=== PATIENT | female | born 1980 | race Caucasian/White ===

== ENCOUNTER 2016-11-12 11:54 | Day surgery (SDC) | payer OTHER ==
[~2016-11-12] VITALS: Ht 172.7 cm; Wt 73.9 kg
[~2016-11-12 11:54] MED LIST: Dexamethasone 4 mg/mL Inj IVPUSH PRN; EPHEDrine Sulfate 50 mg/mL Inj IVPUSH PRN; HYDROmorphone 1 mg/mL Inj IVPUSH PRN; Labetalol 5 mg/mL 4 mL Inj IV PRN; Lactated Ringer's 1,000 ML IV SCH; Lactated Ringer's 500 ML IV PRN; MEDR150D9 IM; MetoCLOpramide 5 mg/mL 2 mL Inj IVPUSH PRN; Ondansetron 2 mg/mL 2 mL Inj IVPUSH PRN; Phenylephrine 10,000 mCg/mL Inj IVPUSH PRN; fentaNYL-PF 50 mCg/mL 2 mL Inj IVPUSH PRN; hydrALAZINE 20 mg/mL Inj IVPUSH PRN
[2016-11-12] MEDS ORDERED: Propofol 10 mg/mL 20 mL Inj ONE (11:55)
[2016-11-12] MEDS ORDERED: Ketamine 10 mg/mL 20 mL Inj ONE (11:55)
[2016-11-12] MEDS ORDERED: fentaNYL-PF 50 mCg/mL 2 mL Inj ONE (11:55)
[2016-11-12 12:39] VITALS: BP 140/80; PULSE 68; RESP 14; O2SAT 100
[2016-11-12] MEDS ORDERED: Lactated Ringer's 1,000 ML IV ONE (12:42)
[2016-11-12] MEDS ORDERED: Bupivacaine-MPF 0.25%/EPI 30 mL Inj INFILTRATE ONE (13:15)
[2016-11-12] MEDS ORDERED: Bacitracin Ointment Packet TOPICAL ONE (13:34)
[2016-11-12] MEDS ORDERED: oxyCODONE-Acetamin 5-325 mg Tablet PO PRN (13:55)
[2016-11-12 13:57] VITALS: BP 118/88; PULSE 94; RESP 16; O2SAT 99
--- NOTE | 2016-11-12 14:15 | PCM.HPANE ---
Patient Data Date of Service: Nov 12, 2016 Surgeon Admitting Provider: Attending Provider:Scar Dickey MD Primary Care Physician:Reji Plaza MD Other Provider:Cely Reynolds Anesthesia Reason for Visit Anal Skin Tag Ht/WT & BMI Height (Feet): 5 Height (Inches): 8 Weight (Kilograms): 73.94 Body Mass Index 24.00 Allergies Coded Allergies: No Known Allergies (Unverified Allergy, 06/11/11) Past Anesthesia History Anesthesia History: Denies:: Abnormal Airway, Anesthesia Reactions, Difficult Intubation Diabetes History Hx Diabetes?: No MRSA MRSA: No Medications Hypertension Medication: No Home Meds Incl Beta Ester: No Reported Medications Medroxyprogesterone Acetate (Depo-Provera)150 Mg/1 Ml [id number] Mg IM [id number] 11/10/16 History History of ENT Problems?: No HEENT History: Denies:: Abnormal Airway Cataracts Difficult Intubation Dysphagia Glaucoma Hearing Problem Sinus Problem TMJ Denture Type: None Teeth Condition: Within Normal Limits Hx of Heart Problems?: No Cardiovascular History: Denies:: AICD Abdominal Aortic Aneurism Chest Pain Congestive Heart Failure Coronary Artery Disease Edema Heart Murmur Hypertension Irregular Heartbeat Pacemaker Peripheral Vascular Rheumatic Fever Thrombophlebitis Valvular Heart Disease Hx of Respiratory Problem?: No Respiratory History: Denies:: Asthma COPD Emphysema Oxygen Administration Pneumonia Tuberculosis Use of C-PAP Machine Hx Neurologic Problems?: No Neurological History: Denies:: Alzheimer's Disease CVA Headaches Multiple Sclerosis Parkinson's Disease Seizures Hx of GI Problems?: Yes Hx of Problems?: No Genitourinary History: Denies:: Kidney Stones Urinary Tract Infection Female Hx: Denies:: Currently Problems with Breasts? Skin History: Denies:: History Skin Disorders? Pressure Ulcers Hx Musculoskeletal Problems?: No Hx of Psycho/Social Problems?: No Psycho Social History: Denies:: Anxiety Hx Depression Hx Surgeries?: Yes (appe) Hx Any Other Health Problems?: Yes Other History: Denies:: Cancer Thyroid Disease History Blood Transfusions: Positive for:: Accept Blood Products? Denies:: Blood Transfusions Hx Diabetes: No Hx Alcohol Use: YesAlcoholic Drinks Per Day: 2-3 glasses weekendsHx Substance Use: NoHave You Smoked inLast 12 mo: No Stop/Bang P-Blood Pressure: treated: No B- Body Mass Index > 35 kg/m2: No A- Age over 50: No N- Neck Large Circumference: No G- Gender Male: No DENIS Risk Assessment: Low Risk, <3 Yes Risk Assessment Category Category 1A: Patient has history of documented sleep apnea, and HAS NOT received any narcotic, sedative or anesthesia administration during this stay. Category 1B: Patient has history of documented sleep apnea, and HAS received any narcotic , sedative or anesthesia administration during this stay Category 2: Patient has SUSPECTED Obstructive Sleep Apnea, and HAS received any narcotic , sedative or anesthesia administration during this stay. Category 3: Patient has SUSPECTED Obstructive Sleep Apnea and HAS NOT received narcotic, sedative or anesthesia administration during this stay. Category 4: Outpatient in Procedural Areas with known sleep apnea or who screen positive for High Risk via the STOP/BANG questionnaire. Exam Exam Vital Signs Vital Signs Date Time Temp Pulse Resp B/P Pulse Ox O2 Delivery O2 Flow Rate FiO2 11/12/16 13:57 36.3 94 16 118/88 99 Room Air 11/12/16 12:39 36.6 68 14 140/80 100 Room Air General Appearance: Alert, Oriented X3, Cooperative, No Acute Distress HEENT/AIRWAY: MP 2 Lungs: Clear to Auscultation, Normal Air Movement Heart: Exam Unremarkable, Regular Rate/Rhythm, No Murmurs/Rubs/Gallops Meds/Labs/Diagnostics Admission Meds Current Medications Lactated Ringer's (Lr) 1,000 ml @ ud STK-MED ONCE IV Last administered on 11/12 12:42; Start 11/12/16 at 12:42; Stop 11/12/16 at 12:43; Status DC Bupivacaine HCl/ Epinephrine Bitart (Sensorcaine-MPF 0.25%/EPI Inj) 30 ml STK- MED ONCE INFILTRATE Last administered on 11/12/16 13:15; Start 11/12/16 at 13: 15; Stop 11/12/16 at 13:16; Status DC Lidocaine HCl (Xylocaine 1% Inj) 20 ml STK-MED ONCE INJ Last administered on 13:15; Start 11/12/16 at 13:15; Stop 11/12/16 at 13:36; Status DC Bacitracin (Bacitracin Ointment) 1 applic STK-MED ONCE TOPICAL Last administered on 11/12/16 13:34; Start 11/12/16 at 13:34; Stop 11/12/16 at 13:36 ; Status DC Plan Impression Patient chart reviewed, patient interviewed and anesthestic plan with risks, benefits, and alternatives discussed, and informed consent obtained. NPO per Anesth. Guidelines: Yes ASA Physical Status: ASA1 Normal Healthy Anesthetic Plan: MAC Bene/Risks/Altern/Consents: Yes HP Complete Prior to Induction: Yes Fitz Guzman MD Nov 12, 2016 14:15
--- NOTE | 2016-11-12 14:21 | PCM.ANEP1 ---
Post Anesthesia PACU Phase 1 Assessment Date of Service: Nov 12, 2016 Vital Signs Vital Signs Date Time Temp Pulse Resp B/P Pulse Ox O2 Delivery O2 Flow Rate FiO2 11/12/16 13:57 36.3 94 16 118/88 99 Room Air 11/12/16 12:39 36.6 68 14 140/80 100 Room Air Anesthetic Administered: MAC Level of Alertness: Awake, talking Pain: No Nausea or Vomiting: No CV Function & Hydration Stable: Yes Airway Device: Oxygen Delivery: Room Air Lungs: Clear to Auscultation, Normal Air Movement PACU Phase 2 Assessment Complications: No Follow up Care: N/A Patient Instructions Provided: N/A Fitz Guzman MD Nov 12, 2016 14:21
--- NOTE | 2016-11-12 14:30 | OP ---
[address] [address] OPERATIVE REPORT PATIENT: SAAD SOTO : 1980 MR#: [id number] ADMIT: 11/12/2016 JOB ID: [id number] DATE OF SURGERY: 11/12/2016 ANESTHESIA: MAC with local. PREOPERATIVE DIAGNOSIS(ES): Anal skin tag. POSTOPERATIVE DIAGNOSIS(ES): Anal skin tag. OPERATIVE PROCEDURE: Excision of anal skin tag. SURGEON: Dr. Scar Dickey. GARDEN WORKER: None. COMPLICATIONS: None. ESTIMATED BLOOD LOSS: Less than 10 mL. CONDITION: Satisfactory. SPECIMEN: Anal pack. FINDINGS: An anterior anal tag which was excised. The wound was closed. INDICATION/SIGNIFICANT HISTORY: The patient is a 35-year-old female who developed an anal tag and 2-1/2 years ago. She was very self-conscious about this and was referred to me. Other than being self-conscious, she was relatively asymptomatic. I advised to leave it alone but she was determined to have it removed. OPERATIVE TECHNIQUE: The patient was taken to the operating room and placed in supine position. Light sedation was administered and she was placed in lithotomy. The perineum was prepped and draped in standard surgical fashion. A procedure pause performed. She had a anal tag seen in clinic in the anterior location. I completely excised this using a combination of dissection and electrocautery. Hemostasis was maintained. I then closed the wound with a running 4-0 Monocryl and reinforced it with an additional simple Monocryl. Local anesthetic had been injected at the beginning of the case.
[2016-11-12 15:07] VITALS: BP 148/91; PULSE 82; RESP 16; O2SAT 100
--- NOTE | 2016-11-16 11:42 | PATH ---
SURGICAL PATHOLOGY Attending Physician:Scar Dickey MD CASE STATUS: Signed Out PATIENT NAME: SAAD SOTO PID: [id number] : 1980 DATE COLLECTED:11/12/2016 00:00 SPECIMEN: Anus, Biopsy CLINICAL HISTORY: ANAL SKIN TAG 1). ANAL SKIN TAG FINAL DIAGNOSIS: 1.ANAL SKIN TAG: ANAL TAG. Negative for dysplasia and neoplasia. ICD10 K64.4 GROSS DESCRIPTION: Received in formalin, labeled with the patient's name and "anal skin tag" is one fragment of wrinkly woodson tissue measuring 1.5 x 1.5 x 0.8 cm. The surface is unevenly pigmented. The surgical margin is inked blue, and the fragment is trisected and totally submitted in one cassette. ([id number]) MICRO DESCRIPTION: See diagnosis. ICD-9 CODES: CPT CODES: 87145 Electronically Signed Out Bety Avalos MD [facility] [address], [place] [address] Technical component performed at [facility], [facility] [address], [place], [address]
== END 2016-11-12 23:59 | disposition home or self-care (01) ==
LOC: SAS 11:54
PROVIDERS: ATTEND General Practice
DX: K64.4 Residual hemorrhoidal skin tags (principal); I10 Essential (primary) hypertension
CPT/HCPCS: 46220; J2250; J3010; J7120